=== PATIENT | female | born 1965 | race Caucasian/White ===

== ENCOUNTER 2017-02-14 13:43 | Emergency (ER) | payer MEDICARE, MEDICAID ==
[~2017-02-14 13:43] MED LIST: ATORVASTATIN CA20 MG PO; AUGMENTIN XR1 GM PO; BENADRYL-DPS25 MG PO; BENTYL-DPS20 MG PO; CALCIUM 600 +1 EAC3 PO; CARAFATE DPS1 GM PO; CARDIZEM CD180 MG PO; CARDIZEM60 MG PO; CELEBREX100 MG PO; CLARITIN DPS10 MG PO; COMBIVENT RESPIM4 GM IH; COUMADIN10 MG PO; COZAAR100 MG PO; DELTASONE DPS10 MG PO; DUONEB DPS3 ML IH; FEOSOL-DPS325 MG PO; KCL PO; KLOR-CON M2020 ME1 PO; LASIX DPS80 MG PO; METFORMIN HCL1000 MG PO; NEXIUM40 MG PO; NITROSTAT0.4 MG SL; NORCO 7.5-3251 EACH PO; OMNICEF DPS300 MG PO; PROAIR HFA8.5 GM IH; SINGULAIR DPS5 MG PO; SINGULAIR10 MG PO; SPIRIVA RESPIMAT4 G1 IH; SYMBICORT160 MCG/6 PO; TYLENOL DPS325 MG PO; VOLTAREN 1% GE100 GM TP; XARELTO15 MG PO; XARELTO20 MG PO; ZANTAC DPS150 MG PO; ZITHROMAX250 MG PO; ZITHROMAX500 MG PO; ZOFRAN4 MG PO; ZOFRAN8 MG PO; ZOLOFT DPS100 MG PO
--- NOTE | 2017-02-21 21:19 | ER ---
ADMIT: 02/14/2017 RM/LOC: ER [facility] MR#: [id number] [facility] [address] [place] [id number] REENA DENTON [address] [place] [id number] Emergency Room Report SEX: F AGE: 51 : 1965 DATE: 02/14/2017 CHIEF COMPLAINT: Shortness of breath. HISTORY OF PRESENT ILLNESS: This is a 51-year-old female who has a long history of COPD, non compliant with her medications, continues to smoke 2 packs of cigarettes daily. She did see her primary care physician 4 days ago and had a negative workup. She said she just keeps increasing on shortness of breath, so she came to the ER. PAST MEDICAL HISTORY: Hypertension, heart disease, COPD, PE, STD, hypercholesteremia, coronary artery disease. MEDICATIONS: Please see nurse's note. She is on Adderall. ALLERGIES: TO FLUOROQUINOLONES. SOCIAL HISTORY: Denies any drug or alcohol use but continues to smoke 2 packs a day. PHYSICAL EXAMINATION: VITAL SIGNS: Blood pressure is 142/82, pulse is 93, respirations 26, temp is 99.4, tympanic saturation oxygen is 90% on room air. GENERAL APPEARANCE: She is mildly distressed, but alert. HEENT: Pharynx is slightly dry but no tonsillar swelling or exudate. NECK: Supple. HEART: Regular rate and rhythm. LUNGS: Decreased bilaterally, [id number] amount of wheezing and rhonchi. She did receive a DuoNeb here in the emergency room that did help with her air movement while here. Her sats have been in the high 80s to low 90s. Right now, she is on 2 L of oxygen at 93%. SKIN: Normal color, warm, and dry. No rashes noted. ABDOMEN: Soft and nontender. No distention. NEURO AND PSYCH: She is alert and oriented x3. Mood and affect normal. ADMIT: 02/14/2017 RM/LOC: ER [facility] MR#: [id number] [address] [id number] REENA DENTON [address] [place] [address] Emergency Room Report SEX: F AGE: 51 : 1965 COURSE IN THE ER: Chest x-ray was done, was negative for any acute findings. CBC was normal except for hemoglobin low at 10.7. EKG showed sinus rhythm with rate of 91 over-read by Dr. Durán, no ST elevation or depression. BMP is normal except for glucose of 136, GFR of 66. She is already on azithromycin 3 times a week for preventive bacterial infection. I told her to continue that. She is supposed to be taking prednisone 5 mg daily. She has chose not to take it. I told her I highly recommend she start taking it and she would probably significantly feel better. Continue her nebs, continue the azithromycin. At this time, I am not going to prescribe any further medication. CLINICAL IMPRESSION: chronic obstructive pulmonary disease exacerbation. GIL Jane / Les Durán MD / nelsonl JOB #: [id number] CC: Les Durán MD, Attending Physician UNKNOWN, Family Physician
== END 2017-02-14 16:00 | disposition home or self-care (01) ==
LOC: ER 13:43
DX: J44.1 Chronic obstructive pulmonary disease with (acute) exacerbation (principal); F17.210 Nicotine dependence, cigarettes, uncomplicated; Z90.710 Acquired absence of both cervix and uterus; Z88.1 Allergy status to other antibiotic agents; Z88.8 Allergy status to other drugs, medicaments and biological substances; Z79.899 Other long term (current) drug therapy